=== PATIENT | female | born 1965 | race Two or more races ===

== ENCOUNTER 2022-09-21 06:38 | Day surgery (SDC) | payer OTHER ==
[~2022-09-21 06:38] MED LIST: EMBREL PO
== END 2022-09-21 17:35 | disposition home or self-care (01) ==
LOC: CIR.AMB 06:38
PROVIDERS: ATTEND Student in an Organized Health Care Education/Training Program
DX: N95.0 Postmenopausal bleeding (principal); Z20.822 Contact with and (suspected) exposure to COVID-19